=== PATIENT | female | born 1975 | race Caucasian/White ===

== ENCOUNTER 2017-08-27 22:16 | Inpatient (IN) | payer OTHER ==
[2017-08-27] MEDS ORDERED: ELECTROLYTE-148 SOLN 500 ML IV ONE (22:55)
[2017-08-27] MEDS ORDERED: CITRIC ACID/SODIUM CITRATE 30 ML UNIT-DOSE CUP PO ONE (22:55)
[2017-08-27 23:15] LABS: BASO % 0.5 % (0-2.0); EOS % 1.7 % (0-4.5); HEMATOCRIT 30.3 % (32.4-45.2); HEMOGLOBIN 10.2 GM/dL (10.7-15.3); LYMPH % 16.2 % (8-40); MCH 31.4 pg (25.7-33.7); MCHC 33.8 g/dl (32.0-36.0); MONO % 6.7 % (3.8-10.2); NEUT % 74.9 % (42.8-82.8); PLATELET COUNT 285 K/MM3 (134-434); RBC 3.25 M/mm3 (3.60-5.2); WHITE BLOOD COUNT 10.7 K/mm3 (4.0-10.0)
[2017-08-27 23:25] VITALS: BMI 40.1
[2017-08-27] MEDS ORDERED: ELECTROLYTE-148 SOLN 1,000 ML IV SCH ×2 (23:25→23:45)
[2017-08-27 23:28] LABS: INR 0.95 (0.82-1.09); PROTHROMBIN TIME (PATIENT) 10.7 SEC (9.98-11.88)
[2017-08-27 23:31] LABS: ACTIVATED PTT 28.3 SECONDS (26.9-34.4)
[2017-08-27] MEDS ORDERED: morphine SULFATE/Preservative Free 0.5 MG/ML (1cc Syringe) ONE (23:54)
[2017-08-27 23:56] LABS: ANION GAP 11 (8-16); BLOOD UREA NITROGEN 10 mg/dL (7-18); CALCIUM 8.2 mg/dL (8.5-10.1); CHLORIDE 104 mmol/L (98-107); CO2 22 mmol/L (21-32); CREATININE 0.7 mg/dL (0.55-1.02); GLUCOSE,RANDOM 95 mg/dL (74-106); POTASSIUM 3.9 mmol/L (3.5-5.1); SODIUM 137 mmol/L (136-145)
--- NOTE | 2017-08-28 00:02 | HP ---
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: No: Alzheimer's, CVA, Dementia, Migraine, Multiple Sclerosis, Peripheral Neuropathy, Parkinson's, Seizure, Syncope, TIA, Vertigo, Other Cardiovascular: No: AFIB, Aneurysm, Aortic Insufficiency, Aortic Stenosis, CAD, CHF, Deep Vein Thrombosis, HTN, Hyperlipdemia, ID, Mitral Insufficiency, Mitral Stenosis, Murmur, Pulmonary Hypertension, Other Pulmonary: No: Asthma, Bronchitis, Cancer, COPD, O2 Dependent, Pneumonia, Previously Intubated, Pulmonary Embolus, Pulmonary Fibrosis, Sleep Apnea, Other Gastrointestinal: No: Ascites, Cancer, Constipation, Crohn's Disease, Diverticulitis, Diverticulosis, Esophageal Varices, Gastritis, GERD, GI Bleed, Hemorrhoids, Hiatal Hernia, Inflamatory Bowel Disease, Irritable Bowel Disease, Pancreatitis, Peptic Ulcer Disease, Ulcerative Colitis, Other Hepatobiliary: No: Cirrhosis, Cholelithiasis, Cholecystitis, Choledocholithiasis , Hepatitis A, Hepatitis B, Hepatitis C, Other Renal/: No: Renal Failure, Renal Inusuff, BPH, Cancer, Hematuria, Hemodialysis , Neurogenic Bladder, Renal Calculi, UTI, Other Reproductive: No: Ectopic , Endometriosis, Fibroids, PID, Polycystic Ovary Syndrome, Postmenopausal, Other ...: 2 ...Para: 1 ...Term: 1 ...: 0 ...Spon : 0 ...Induced : 0 ...Multiple Gestation: 0 ...LMP: 12/08/16 ... Weeks Gestation by Dates: 37.3 ...EDC by Sono: 09/14/17 Heme/Onc: Yes: Anemia Infectious Disease: No: AIDS, C-Diff, Herpes Zoster, HIV, MRSA, STD's, Tuberculosis, VREF, Other Psych: No: Addictions, Anxiety, Bipolar, Depression, Panic, Psychosis, Schizophrenia, Other Musculoskeletal: No: Bursitis, Chronic low back pain, Hemiparesis, Hemiplegia, Osteoarthritis, Paraplegia, Other Rheumatology: No: Fibromyalgia, Gout, Lupus, Rheumatoid Arthritis, Sarcoidosis, Vasculitis, Other ENT: No: Allergic Rhinitis, Sinusitis, Other Endocrine: No: Lawrence's Disease, Alysa's Disease, Diabetes Insipidus, Diabetes Mellitus, Hyperparathyroidism, Hyperthyroidism, Hypothyroidism, Osteopenia, SIADH, Other Dermatology: No: Basal Cell, Cellulitis, Eczema, Melanoma, Psoriasis, Squamous Cell, Other Additional Medical History: Obesity - Past Surgical History Past Surgical History: Yes: Hx Myomectomy: No Hx Transabdominal Cerclage: No - Smoking History Smoking history: Never smoked Have you smoked in the past 12 months: No - Alcohol/Substance Use Hx Alcohol Use: No History of Substance Use: reports: None - Social History Usual Living Arrangement: Yes: Alone, With Child ADL: Independent 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 History of Recent Travel: No Home Medications - Allergies Allergies/Adverse Reactions: Allergies Allergy/AdvReac Type Severity Reaction Status Date / Time No Known Allergies Allergy Verified 08/27/17 22:42 - Home Medications Home Medications: Ambulatory Orders RX: Vitamins (Sjr) - 1 tab PO DAILY 08/19/15 Family Disease History - Family Disease History Family Disease History: CA: Mother (Colon ca) Review of Systems - Review of Systems Constitutional: reports: Other (labor) Eyes: reports: No Symptoms HENT: reports: No Symptoms Neck: reports: No Symptoms Cardiovascular: reports: No Symptoms Respiratory: reports: No Symptoms Gastrointestinal: reports: No Symptoms Genitourinary: reports: No Symptoms Breasts: reports: No Symptoms Reported Musculoskeletal: reports: No Symptoms Integumentary: reports: No Symptoms Neurological: reports: No Symptoms Endocrine: reports: No Symptoms Hematology/Lymphatic: reports: No Symptoms Psychiatric: reports: No Symptoms Pain Intensity: 9 Physical Exam - Maternity Vital Signs: Vital Signs Temperature 97.6 F 08/27/17 23:00 Pulse Rate 76 08/27/17 23:00 Respiratory Rate 18 08/27/17 23:00 Blood Pressure 115/65 08/27/17 23:00 O2 Sat by Pulse Oximetry (%) Constitutional: Yes: Calm, Obese Eyes: Yes: WNL, Conjunctiva Clear, EOM Intact HENT: Yes: Atraumatic, Normocephalic Neck: Yes: Supple, Trachea Midline Cardiovascular: Yes: Regular Rate and Rhythm Lungs: Clear to auscultation, Normal air movement - Abdominal Exam/OB Fundal Height: 41 Number of Fetuses: Single Presentation: Vertex Contractions: Yes Regularity: Regular Intensity: Mod/Strong Monitor Mode: External Heart Rate (range): 140 Heart Rate Location: Midline Category: I Accelerations: Uniform Decelerations: None - Vaginal Exam/OB Vaginal Bleediing: No Speculum Exam: No Dilatation (cm): 1 Effacement (%): 80 Amniotic Membrane Status: Intact Presentation: Vertex/Position Station: -4 - Physical Exam Musculoskeletal: Yes: WNL Extremities: Yes: WNL Edema: Yes Edema: LLE: Trace, RLE: Trace Integumentary: Yes: WNL Deep Tendon Reflex Grade: Normal +2 ...Motor Strength: WNL Psychiatric: Yes: WNL, Alert, Oriented - Labs Lab Results: CBC, BMP 08/27/17 22:55 Hemorrhage Risk Assessment - Risk Factors Medium Risk Factors: Yes: Prior , uterine surgery,or multiple laparotomies, Obesity (BMI >40) High Risk Factors: Yes: None Risk Score: 2 Risk Level: High Risk Imaging - Results Ultrasound: Report Reviewed Assessment/Plan 41yo P1 with at EGA 37w 3d with regular painful contractions since x2- 3 hrs. Pt with prior C/S and declined . Fetus with Category I tracing and does not require intervention. We discussed the risks and benefits of C/S at length, including but not limited to scarring, pain, bleeding, infection, injury to underlying organs and structures, need for additional surgery to repair/treat any problems or complications, complications/injuries, etc. The pt verbalized her understanding and requested to proceed with surgery.
[2017-08-28] MEDS ORDERED: ceFAZolin SODIUM 1 GM VIAL ONE (00:12)
[2017-08-28] MEDS ORDERED: PHENYLEPHRINE HCL 10 MG/1 ML SINGLE DOSE VIAL ONE (00:12)
[2017-08-28] MEDS ORDERED: OXYTOCIN 10 UNITS/ML VIAL ONE ×2 (00:24→00:33)
[2017-08-28] MEDS ORDERED: SENNOSIDES/DOCUSATE COMBO (SENNA PLUS) TABLET (UD) PO PRN (01:25)
[2017-08-28] MEDS ORDERED: BENZOCAINE 20% 57 GM BOTTLE TP PRN (01:25)
[2017-08-28] MEDS ORDERED: WITCH HAZEL 50% (TUCKS) 40 PAD/JAR PAD TP PRN (01:25)
[2017-08-28] MEDS ORDERED: IBUPROFEN 600 MG TABLET (FP) PO PRN ×2 (01:25→01:36)
[2017-08-28] MEDS ORDERED: METHYLERGONOVINE MALEATE 0.2 MG/1 ML AMP IM PRN (01:25)
[2017-08-28] MEDS ORDERED: BENZOCAINE 28 GM HEMORRHOIDAL OINTMENT TP PRN (01:25)
[2017-08-28] MEDS ORDERED: oxyCODONE HCL 5 MG TABLET PO PRN (01:25)
[2017-08-28] MEDS ORDERED: OXYTOCIN 20 UNITS in 0.9% NS 20 UNIT/1,000 ML INFUS.BAG IV SCH (01:30)
[2017-08-28] MEDS ORDERED: morphine SULFATE/Preservative Free 0.5 MG/ML (1cc Syringe) SPIN ONE (01:36)
[2017-08-28] MEDS ORDERED: ONDANSETRON 4 MG/2 ML VIAL IVPUSH PRN (01:36)
--- NOTE | 2017-08-28 01:37 | OP ---
Operative Note - Note: Operative Date: 08/28/17 Pre-Operative Diagnosis: at 37w3d with prior C/S in labor Operation: Repeat LT C/S Findings: Live baby boy in VTX presentation, no meconium, normal uterus/tubes/ovaries. 9/9 Post-Operative Diagnosis: Same as Pre-op Surgeon: Pillo Donnelly Information Technology Security Analyst: Ewa Coats Anesthesiologist/DESIGN DRAFTER: Nancy Shelby Anesthesia: Spinal Specimens Removed: Placenta Estimated Blood Loss (mls): 700 Drains & Tubes with Location: Maurice Cath Drains, Volume Out (mls): 300 Blood Volume Replaced (mls): 0 Fluid Volume Replaced (mls): 1,000 Operative Report Dictated: Yes
[2017-08-28] MEDS ORDERED: CEFAZOLIN 1 GM/D5W 1 GM/50 ML BAG IVPB SCH ×2 (02:00→08:00)
[2017-08-28] MEDS: IBUPROFEN 800 MG/8 ML IJ IVPB PRN ×2 (05:09→20:06)
[2017-08-28] MEDS: ENOXAPARIN NA (PORCINE) 40 MG/0.4 ML DISP.SYRIN SQ SCH (09:43)
[2017-08-28] MEDS: PRENATAL VITAMINS W/ FOLIC ACID TABLET (FP) PO SCH (09:44)
[2017-08-28] MEDS: CEFAZOLIN 1 GM PUSH 1 GM/10 ML DISP.SYRIN IVPUSH SCH ×2 (10:18→16:05)
--- NOTE | 2017-08-28 11:32 | PN ---
Progress Note (short form) - Note Progress Note: Pt is day#1 s/p csection. Doing well, no pain, no complaints. No MARTINEZ/back pain , no apparent anesthetic complications. Continue current treatment.
--- NOTE | 2017-08-28 13:22 | PN ---
Post Progress Note - Subjective Subjective: No complaints Post Day: 0 Type of Delivery: Repeat C/S Vital Signs: Vital Signs Temperature 97 F L 08/28/17 10:00 Pulse Rate 64 08/28/17 10:00 Respiratory Rate 18 08/28/17 13:00 Blood Pressure 81/48 08/28/17 10:00 O2 Sat by Pulse Oximetry (%) 100 08/28/17 02:20 Breast Exam: Yes: Soft Uterus: Yes: Fundus @ umbilicus Incision: Yes: Dressing dry and intact Abdomen/GI: Yes: Abdomen soft Lochia: Yes: Rubra Lochia, amount: Small Extremities: Yes: Calves non-tender Perineum: Yes: Intact Activity: Ambulating - Labs Labs: CBC WBC 10.7 K/mm3 (4.0-10.0) H 08/27/17 22:55 RBC 3.25 M/mm3 (3.60-5.2) L 08/27/17 22:55 Hgb 10.2 GM/dL (10.7-15.3) L 08/27/17 22:55 Hct 30.3 % (32.4-45.2) L 08/27/17 22:55 MCV 93.0 fl (80-96) 08/27/17 22:55 MCH 31.4 pg (25.7-33.7) 08/27/17 22:55 MCHC 33.8 g/dl (32.0-36.0) 08/27/17 22:55 RDW 13.0 % (11.6-15.6) 08/27/17 22:55 Plt Count 285 K/MM3 (134-434) 08/27/17 22:55 MPV 8.0 fl (7.5-11.1) 08/27/17 22:55 Neutrophils % 74.9 % (42.8-82.8) 08/27/17 22:55 Lymphocytes % 16.2 % (8-40) 08/27/17 22:55 Monocytes % 6.7 % (3.8-10.2) 08/27/17 22:55 Eosinophils % 1.7 % (0-4.5) 08/27/17 22:55 Basophils % 0.5 % (0-2.0) 08/27/17 22:55 Assessment/Plan 41yo P2 s/p repeat LT C/s, doing well, stable, afebrile. The pt is asymptomatic for s/sxs of anemia. care instructions reviewed. Continue routine postop care. Ambulation encouraged.
[2017-08-29] MEDS: CEFAZOLIN 1 GM PUSH 1 GM/10 ML DISP.SYRIN IVPUSH SCH (00:51)
[2017-08-29] MEDS ORDERED: BISACODYL 10 MG SUPP.RECT RC PRN (01:25)
--- NOTE | 2017-08-29 06:55 | OP ---
DATE OF OPERATION: 08/28/2017 PREOPERATIVE DIAGNOSES: at 37 weeks and 3 days, spontaneous labor, previous section. POSTOPERATIVE DIAGNOSES: at 37 weeks and 3 days, spontaneous labor, previous section, delivered. PROCEDURE: Repeat low transverse section via Pfannenstiel skin incision. SURGEON: Pillo Donnelly MD ASSISTANT TECHNICIAN: Ewa Coats DO ANESTHESIA: Spinal. ANESTHESIOLOGIST: Nancy Shelby MD ESTIMATED BLOOD LOSS: 700 mL. URINE OUTPUT: 300 mL of clear urine at the end of the procedure. IV FLUIDS: 1000 mL. PATHOLOGY: Placenta. COMPLICATIONS: None. FINDINGS: Live baby boy in vertex presentation. No meconium in amniotic fluid. Normal uterus, fallopian tubes and ovaries. PROCEDURE: The patient was met preoperatively. Risks, benefits and alternatives of surgery were discussed in detail. All questions were answered. The patient was brought to the OR with IV running. She was placed on the surgical table in the sitting position. The spinal anesthesia was achieved without difficulty. The patient was then placed in a supine position with a leftward tilt. A Maurice catheter was inserted and left to drain to gravity. The patient was prepped and draped in the usual sterile fashion. A timeout procedure was conducted as per standard protocol. The surgeons then proceeded with the section. A Pfannenstiel skin incision was made with a knife along the prior scar. The incision was taken down to the level of fascia. The fascia was incised in the midline. The incision was extended bilaterally using Maya scissors. The fascia was dissected away from the rectus muscles superiorly and inferiorly. The peritoneum was identified and entered sharply. The peritoneal incision was extended superiorly and inferiorly. The bladder was dissected away from the lower uterine segment and retracted downwards. The uterus was incised transversely in the lower uterine segment. The uterine incision was extended bilaterally using bandage scissors. The amniotic bag was ruptured and clear amniotic fluid was noted. The baby was delivered from vertex presentation without complications. The umbilical cord was clamped and cut. The baby was handed to the waiting personnel coordinator. The placenta was delivered manually and without complications. The uterus was cleared of all clots and debris using laparotomy laps. The uterine incision was repaired using 0 Biosyn suture. The uterine incision was then imbricated using a 0 Biosyn suture with good hemostasis. The bladder peritoneum was reapproximated using 0 Biosyn suture. The operative site was irrigated using copious amounts of normal saline. Once the saline was aspirated, good hemostasis was confirmed. The abdominal peritoneum was closed using 2-0 chromic suture. The rectus muscles were approximated in the midline using several interrupted 2-0 chromic sutures. The fascia was closed using a 0 Vicryl suture with good hemostasis and approximation. The subcutaneous adipose tissues were closed using several interrupted 0 Vicryl sutures to eliminate space. The skin was closed using a 3-0 Vicryl suture with a subcutaneous stitch. The patient tolerated the procedure well. Sponge, lap and instrument counts were correct. The patient was transferred to the recovery room in stable condition. Loretta [id number]
[2017-08-29 08:40] LABS: BASO % 0.6 % (0-2.0); EOS % 1.6 % (0-4.5); HEMATOCRIT 31.6 % (32.4-45.2); HEMOGLOBIN 10.5 GM/dL (10.7-15.3); LYMPH % 13.6 % (8-40); MCHC 33.2 g/dl (32.0-36.0); MEAN CELL VOLUME 93.3 fl (80-96); MEAN PLT VOLUME 7.9 fl (7.5-11.1); MONO % 5.4 % (3.8-10.2); NEUT % 78.8 % (42.8-82.8); PLATELET COUNT 256 K/MM3 (134-434); RBC 3.38 M/mm3 (3.60-5.2); RDW 13.1 % (11.6-15.6); WHITE BLOOD COUNT 9.9 K/mm3 (4.0-10.0)
[2017-08-29] MEDS ORDERED: DIPHTH,PERTUSS(ACELL),TET 0.5 ML DISP.SYRIN IM ONE (10:00)
[2017-08-29] MEDS ORDERED: FLU VACCINE QUAD 60 MCG/0.5 ML (MDV 17-18) IM ONE (10:00)
[2017-08-29] MEDS: ENOXAPARIN NA (PORCINE) 40 MG/0.4 ML DISP.SYRIN SQ SCH (10:10)
[2017-08-29] MEDS: PRENATAL VITAMINS W/ FOLIC ACID TABLET (FP) PO SCH (10:11)
[2017-08-29] MEDS ORDERED: oxyCODONE HCL 5 MG TABLET PO PRN (10:27)
[2017-08-29] MEDS: SIMETHICONE 80 MG TAB.CHEW (FP) PO PRN ×2 (10:56→20:52)
[2017-08-29] MEDS: oxyCODONE HCL 5 MG TABLET PO PRN ×2 (10:56→20:52)
[2017-08-29] MEDS: ACETAMINOPHEN 325 MG TABLET (FP) PO PRN ×2 (10:58→20:52)
--- NOTE | 2017-08-29 12:32 | PN ---
Post Progress Note - Subjective Subjective: No complaints, ambulating, had flatus, pain controlled Post Day: 1 Type of Delivery: Repeat C/S Vital Signs: Vital Signs Temperature 97.5 F L 08/29/17 01:00 Pulse Rate 67 08/29/17 01:00 Respiratory Rate 20 08/29/17 01:00 Blood Pressure 101/57 08/29/17 01:00 O2 Sat by Pulse Oximetry (%) 100 08/28/17 02:20 Breast Exam: Yes: Soft Uterus: Yes: Fundus Firm, Fundus below umbilicus, Non-tender Incision: Yes: Sutures intact Abdomen/GI: Yes: Abdomen soft Lochia: Yes: Rubra Lochia, amount: Small Extremities: Yes: Calves non-tender Perineum: Yes: Intact Activity: Ambulating - Labs Labs: CBC WBC 9.9 K/mm3 (4.0-10.0) 08/29/17 08:10 RBC 3.38 M/mm3 (3.60-5.2) L 08/29/17 08:10 Hgb 10.5 GM/dL (10.7-15.3) L 08/29/17 08:10 Hct 31.6 % (32.4-45.2) L 08/29/17 08:10 MCV 93.3 fl (80-96) 08/29/17 08:10 MCH 31.0 pg (25.7-33.7) 08/29/17 08:10 MCHC 33.2 g/dl (32.0-36.0) 08/29/17 08:10 RDW 13.1 % (11.6-15.6) 08/29/17 08:10 Plt Count 256 K/MM3 (134-434) 08/29/17 08:10 MPV 7.9 fl (7.5-11.1) 08/29/17 08:10 Neutrophils % 78.8 % (42.8-82.8) 08/29/17 08:10 Lymphocytes % 13.6 % (8-40) 08/29/17 08:10 Monocytes % 5.4 % (3.8-10.2) 08/29/17 08:10 Eosinophils % 1.6 % (0-4.5) 08/29/17 08:10 Basophils % 0.6 % (0-2.0) 08/29/17 08:10 Assessment/Plan 41yo POD #1 for this P2 s/p repeat LT C/s, doing well, stable, afebrile. The pt is asymptomatic for s/sxs of anemia. Hct stable. care instructions reviewed. Continue routine postop care. Ambulation encouraged.
[2017-08-30] MEDS: oxyCODONE HCL 5 MG TABLET PO PRN ×2 (07:45→17:25)
[2017-08-30] MEDS: SIMETHICONE 80 MG TAB.CHEW (FP) PO PRN ×2 (07:45→17:25)
[2017-08-30] MEDS: ACETAMINOPHEN 325 MG TABLET (FP) PO PRN ×2 (07:46→17:26)
[2017-08-30] MEDS: PRENATAL VITAMINS W/ FOLIC ACID TABLET (FP) PO SCH (09:38)
[2017-08-30] MEDS: ENOXAPARIN NA (PORCINE) 40 MG/0.4 ML DISP.SYRIN SQ SCH (09:38)
--- NOTE | 2017-08-30 12:47 | DS ---
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 Vital Signs: Vital Signs Temperature 97.8 F 08/30/17 08:31 Pulse Rate 74 08/30/17 08:31 Respiratory Rate 20 08/30/17 08:31 Blood Pressure 110/65 08/30/17 08:31 O2 Sat by Pulse Oximetry (%) 100 08/28/17 02:20 Constitutional: Yes: Well Nourished, No Distress, Calm Eyes: Yes: WNL, Conjunctiva Clear HENT: Yes: WNL, Atraumatic, Normocephalic Neck: Yes: WNL, Supple, Trachea Midline Cardiovascular: Yes: WNL, Regular Rate and Rhythm Respiratory: Yes: WNL, Regular, CTA Bilaterally Gastrointestinal: Yes: Normal Bowel Sounds, Soft, Abdomen, Obese ...Rectal Exam: Yes: Deferred Renal/: Yes: WNL External Genitalia: Yes: Normal Internal Exam Deferred: Yes ....Post : Yes: Uterus firm, Uterus non-tender, Slight lochia rubra Breast(s): Yes: WNL Musculoskeletal: Yes: WNL Extremities: Yes: WNL Edema: LLE: Trace, RLE: Trace Integumentary: Yes: WNL Wound/Incision: Yes: Clean/Dry, Well Approximated, Sutures Intact, Steri Strips Neurological: Yes: WNL, Alert, Oriented ...Motor Strength: WNL Psychiatric: Yes: WNL, Alert, Oriented Labs: CBC, BMP 08/29/17 08:10 08/27/17 22:55 Delivery - Delivery Section: Repeat, Low Flap Transverse Type of Anesthesia: Spinal Episiotomy/Laceration: None EBL (cc): 700 Delivery, Single - Stages of Labor Date 1st Stage Initiatied: 08/27/17 Time 1st Stage Initiated: 20:00 Date of Delivery: 08/28/17 Time of Delivery: 00:32 Time Placenta Delivered: 00:33 Placenta: Yes: Manual Removal, Normal Configuration - Condition of Receptionist Clerk/Stars Analytical Lead Present: Yes Name: Laurel Everett Gender: Male Weight: 3.515 kg Position: Left, OT Total Hours ROM (Hrs/Mins): 2min - 1 Minute Total Score: 9 5 Minutes Total Score: 9 - [place] Feeding Plan Initial Plan: Elected not to breastfeed exclusively throughout hospitalization Discharge Summary Reason For Visit: ADMIT Spontaneous labor, prior C/S Procedures: Principal: Repeat LT C/S Hospital Course: Normal recovery Condition: Good - Instructions Diet, Activity, Other Instructions: Physical activity Resume your normal everyday activity as tolerated no heavy lifting or exercise until seen by your surgeon. You may walk unlimited na of and climb stairs. You may resume driving the car when you feel safe and comfortable behind the wheel. No sexual activity as instructed. Wound care If you have a bandage, leave it on, and keep dry for 48-72 hours. After that time discard the outer bandage. If they are tapes on the skin under the out of bandage leave them in place. They will peel off in the next 7 to 10 days. Do Not Peel them off. You may shower the day after surgery. If there are tapes present on the skin, you may shower over them. Diet There are no dietary restrictions. Eat healthy, high-fiber foods. Drink 6 to 8 glasses of liquid each day. This will assist in keeping your bowels are regular. Pain management You may take Tylenol or acetaminophen or Ibuprofen (for example, Motrin, Advil etc.) from my pain prescription medication is ordered should be taken as prescribed for moderate to severe pain. Call MD for any of the following: Severe pain not relieved by medication Fever of 101 or higher Excessive bleeding or drainage on dressing Inability to urinate Referrals: Pillo Donnelly MD [Staff Physician] - Disposition: HOME - Home Medications Comprehensive Discharge Medication List: Ambulatory Orders Vitamins (Sjr) - 1 tab PO DAILY 08/19/15
[2017-08-31] MEDS: SIMETHICONE 80 MG TAB.CHEW (FP) PO PRN (05:59)
[2017-08-31] MEDS: ACETAMINOPHEN 325 MG TABLET (FP) PO PRN (06:00)
[2017-08-31] MEDS: oxyCODONE HCL 5 MG TABLET PO PRN (06:03)
[2017-08-31 08:01] LABS: BASO % 0.4 % (0-2.0); EOS % 3.6 % (0-4.5); HEMATOCRIT 29.7 % (32.4-45.2); HEMOGLOBIN 9.9 GM/dL (10.7-15.3); LYMPH % 19.2 % (8-40); MCH 31.2 pg (25.7-33.7); MCHC 33.4 g/dl (32.0-36.0); MEAN CELL VOLUME 93.4 fl (80-96); MEAN PLT VOLUME 7.7 fl (7.5-11.1); MONO % 5.9 % (3.8-10.2); NEUT % 70.9 % (42.8-82.8); PLATELET COUNT 270 K/MM3 (134-434); RBC 3.18 M/mm3 (3.60-5.2); RDW 12.7 % (11.6-15.6); WHITE BLOOD COUNT 8.2 K/mm3 (4.0-10.0)
[2017-08-31] MEDS: ENOXAPARIN NA (PORCINE) 40 MG/0.4 ML DISP.SYRIN SQ SCH (09:42)
[2017-08-31] MEDS: PRENATAL VITAMINS W/ FOLIC ACID TABLET (FP) PO SCH (09:43)
[2017-08-31 10:27] VITALS: BP 112/63; PULSE 69; TEMP 99.4
--- NOTE | 2017-09-02 17:44 | PATH ---
Surgical Pathology Report Patient Name: HUSEYIN BUSTILLO Med. Rec. #: [id number] /Age/Gender: 1975 (Age: 41) / F Account: [id number] Location: [facility] OBS/SALES PROMOTION OFFICER Taken: 08/28/2017 Received: 08/28/2017 Reported: 09/02/2017 Physicians: Pillo Donnelly M.D. Specimen(s) Received PLACENTA Clinical History , 37.3 weeks previous in labor Final Diagnosis PLACENTA, SECTION: 470 g THIRD TRIMESTER PLACENTA WITH TRIVASCULAR UMBILICAL CORD AND UNREMARKABLE PLACENTAL MEMBRANES. Electronically Signed Nilda Calzada M.D. Gross Description The specimen is received fresh labeled placenta and is a 470 gram, 17.5 x 17.0 x 2.1 cm. placenta with attached membranes and umbilical cord. The attached membranes are abbasi, translucent with focal opacities and insert marginally. The umbilical cord measures 39 cm. in length and averages 1.1 cm. in diameter. The cord inserts eccentrically, 5 cm. to the nearest margin. No true knots or strictures are identified. Cut surface of the umbilical cord reveals 3 vessels. The surface is michaels-blue with minimal fibrin deposition and appropriate caliber vessels. The maternal surface is red-brown with focal defects. Sectioning reveals red-brown, spongy parenchyma. No lesions are identified. Enterprise Account Executive sections are submitted in three cassettes as follows: 1- membrane rolls and umbilical cord; 2-3- full thickness sections of placenta. 09/01/201709/01/2017
== END 2017-08-31 16:30 | disposition home or self-care (01) | DRG 765 ==
LOC: JDEL 22:16 → JLDR 22:50 → J3W 08-28 03:30
PROVIDERS: ADMIT Obstetrics & Gynecology; ATTEND Obstetrics & Gynecology
PROC: 10D00Z1 Extraction of Products of Conception, Low, Open Approach (ICD-10-PCS; principal; 2017-08-28)
DX: O34.219 Maternal care for unspecified type scar from previous cesarean delivery (principal); Z68.41 Body mass index [BMI] 40.0-44.9, adult; O99.214 Obesity complicating childbirth; E66.8 Other obesity; Z3A.37 37 weeks gestation of pregnancy; Z37.0 Single live birth
CPT/HCPCS: 36415; 80048; 85025; 85610; 85730; 86593; 86850; 86900; 86901; 88307-TC; 90688; 90715; G0008

== ENCOUNTER 2017-11-17 05:15 | Day surgery (SDC) | payer OTHER ==
[2017-11-14 11:06] VITALS: BMI 38.3
--- NOTE | 2017-11-17 09:10 | HP ---
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: No: Alzheimer's, CVA, Dementia, Migraine, Multiple Sclerosis, Peripheral Neuropathy, Parkinson's, Seizure, Syncope, TIA, Vertigo, Other Cardiovascular: No: AFIB, Aneurysm, Aortic Insufficiency, Aortic Stenosis, CAD, CHF, Deep Vein Thrombosis, HTN, Hyperlipdemia, IA, Mitral Insufficiency, Mitral Stenosis, Murmur, Pulmonary Hypertension, Other Pulmonary: No: Asthma, Bronchitis, Cancer, COPD, O2 Dependent, Pneumonia, Previously Intubated, Pulmonary Embolus, Pulmonary Fibrosis, Sleep Apnea, Other Gastrointestinal: No: Ascites, Cancer, Constipation, Crohn's Disease, Diverticulitis, Diverticulosis, Esophageal Varices, Gastritis, GERD, GI Bleed, Hemorrhoids, Hiatal Hernia, Inflamatory Bowel Disease, Irritable Bowel Disease, Pancreatitis, Peptic Ulcer Disease, Ulcerative Colitis, Other Hepatobiliary: No: Cirrhosis, Cholelithiasis, Cholecystitis, Choledocholithiasis , Hepatitis A, Hepatitis B, Hepatitis C, Other Renal/: No: Renal Failure, Renal Inusuff, BPH, Cancer, Hematuria, Hemodialysis , Neurogenic Bladder, Renal Calculi, UTI, Other Reproductive: No: Ectopic , Endometriosis, Fibroids, PID, Polycystic Ovary Syndrome, Postmenopausal, Other ...Para: 2 Heme/Onc: Yes: Anemia Infectious Disease: No: AIDS, C-Diff, Herpes Zoster, HIV, MRSA, STD's, Tuberculosis, VREF, Other Psych: No: Addictions, Anxiety, Bipolar, Depression, Panic, Psychosis, Schizophrenia, Other Musculoskeletal: No: Bursitis, Chronic low back pain, Hemiparesis, Hemiplegia, Osteoarthritis, Paraplegia, Other Rheumatology: No: Fibromyalgia, Gout, Lupus, Rheumatoid Arthritis, Sarcoidosis, Vasculitis, Other ENT: No: Allergic Rhinitis, Sinusitis, Other Endocrine: No: Lawrence's Disease, Alysa's Disease, Diabetes Insipidus, Diabetes Mellitus, Hyperparathyroidism, Hyperthyroidism, Hypothyroidism, Osteopenia, SIADH, Other Dermatology: No: Basal Cell, Cellulitis, Eczema, Melanoma, Psoriasis, Squamous Cell, Other Additional Medical History: Obesity - Past Surgical History Past Surgical History: Yes: (x 2) Hx Myomectomy: No Hx Transabdominal Cerclage: No - Smoking History Smoking history: Never smoked Have you smoked in the past 12 months: No - Alcohol/Substance Use Hx Alcohol Use: No History of Substance Use: reports: None - Social History Usual Living Arrangement: Yes: With Child ADL: Independent 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 History of Recent Travel: No Home Medications - Allergies Allergies/Adverse Reactions: Allergies Allergy/AdvReac Type Severity Reaction Status Date / Time No Known Allergies Allergy Verified 08/27/17 22:42 - Home Medications Home Medications: Ambulatory Orders NK [No Known Home Medication] 11/14/17 Family Disease History - Family Disease History Family Disease History: CA: Mother (Colon ca) Review of Systems - Review of Systems Constitutional: reports: No Symptoms Eyes: reports: No Symptoms HENT: reports: No Symptoms Neck: reports: No Symptoms Cardiovascular: reports: No Symptoms Respiratory: reports: No Symptoms Gastrointestinal: reports: No Symptoms Genitourinary: reports: No Symptoms Breasts: reports: No Symptoms Reported Musculoskeletal: reports: No Symptoms Integumentary: reports: No Symptoms Neurological: reports: No Symptoms Endocrine: reports: No Symptoms Hematology/Lymphatic: reports: No Symptoms Psychiatric: reports: No Symptoms Pain Intensity: 0 Physical Exam-PRODUCT DEVELOPMENT ASSISTANT Constitutional: Yes: Well Nourished, No Distress, Calm Eyes: Yes: WNL, Conjunctiva Clear HENT: Yes: WNL, Atraumatic, Normocephalic Neck: Yes: WNL, Supple, Trachea Midline Cardiovascular: Yes: WNL, Regular Rate and Rhythm Respiratory: Yes: WNL, Regular, CTA Bilaterally Gastrointestinal: Yes: Normal Bowel Sounds, Soft, Abdomen, Obese ...Rectal Exam: Yes: Deferred Renal/: Yes: WNL Pelvis: Yes: WNL External Genitalia: Yes: Normal Internal Exam Deferred: No Vaginal Exam: Yes: Normal Cervix: Yes: Normal Uterus: Yes: Normal Adnexa: Not Palpable: Left, Right Musculoskeletal: Yes: WNL Extremities: Yes: WNL Edema: No Integumentary: Yes: WNL Neurological: Yes: WNL, Alert, Oriented ...Motor Strength: WNL Psychiatric: Yes: WNL, Alert, Oriented Assessment/Plan 42yo P2 admitted for surgical sterilization. The pt prefers laparoscopic bilateral tubal ligation. We had discussed the risks, benefits, alternatives of surgery at length including but not limited to infection, bleeding, scarring, perforation, amenorrhea, infertility, hysterectomy, injury to surrounding/ underlying organs or structure, need for additional surgery to repair/treat any complications, etc. The patient verbalized understanding and requested to proceed with surgery. I emphasized that all surgeries have risks and no guarantees can be provided.
[2017-11-17] MEDS ORDERED: MIDAZOLAM HCL 2 MG/2 ML SINGLE DOSE VIAL ONE (10:17)
[2017-11-17] MEDS ORDERED: PROPOFOL 20 ML ONE (10:21)
[2017-11-17] MEDS ORDERED: ROCURONIUM BROMIDE 50 MG/5 ML VIAL ONE (10:31)
[2017-11-17] MEDS ORDERED: NEOSTIGMINE METHYLSULFATE 0.5 MG/ML - 10 ML MDV ONE (10:57)
[2017-11-17] MEDS ORDERED: BUPIVACAINE HCL/PF 0.25% (2.5MG/ML) 10 ML VIAL IJ ONE (10:59)
--- NOTE | 2017-11-17 11:09 | OP ---
Operative Note - Note: Operative Date: 11/17/17 Pre-Operative Diagnosis: Sterilization Operation: Laparoscopic bilateral tubal ligation Findings: Normal uterus and fallopian tubes Post-Operative Diagnosis: Same as Pre-op Surgeon: Pillo Donnelly Cargo Worker: Adriana Jones Anesthesiologist/SHIPBOARD INTELLIGENCE ANALYST: Libby Francisco MD Anesthesia: General Specimens Removed: None Estimated Blood Loss (mls): 2 Drains & Tubes with Location: Maurice cath Drains, Volume Out (mls): 300 Blood Volume Replaced (mls): 0 Fluid Volume Replaced (mls): 1,000 Operative Report Dictated: Yes
[2017-11-17] MEDS ORDERED: oxyCODONE HCL 5 MG TABLET PO PRN (11:31)
[2017-11-17] MEDS ORDERED: PROMETHAZINE HCL 25 MG/1 ML VIAL IVPUSH PRN (11:31)
[2017-11-17] MEDS ORDERED: ONDANSETRON 4 MG/2 ML VIAL IVPUSH PRN (11:31)
[2017-11-17] MEDS ORDERED: LACTATED RINGERS SOLUTION 1,000 ML IV SCH (11:45)
[2017-11-17 12:12] VITALS: TEMP 98
[2017-11-17 14:52] VITALS: BP 113/67; PULSE 61
--- NOTE | 2017-11-18 08:05 | OP ---
DATE OF OPERATION: 11/17/2017 PREOPERATIVE DIAGNOSIS: Sterilization. POSTOPERATIVE DIAGNOSIS: Sterilization. PROCEDURE: Laparoscopic bilateral tubal ligation via fulguration. SURGEON: Pillo Donnelly MD CALENDER TENDER: Adriana Jones MD ANESTHESIOLOGIST: Libby Francisco MD ANESTHESIA: General endotracheal. COMPLICATIONS: None. ESTIMATED BLOOD LOSS: Less than 2 mL. INTRAVENOUS FLUIDS: 1000 mL. URINE OUTPUT: 300 mL of clear urine at the end of the procedure. FINDINGS: Examination under anesthesia revealed a small anteverted uterus with no pelvic or adnexal masses. Laparoscopy revealed a normal uterus and ovaries with normal fallopian tubes. Visualized portions of bowel, liver, and gallbladder were within normal limits. DESCRIPTION OF PROCEDURE: The patient was met preoperatively. Risks, benefits, and alternatives of surgery were discussed in details. All questions were answered. The patient was brought to the OR with the IV running. She was placed on a surgical table in the supine position. The general endotracheal anesthesia was achieved without difficulty. The patient was then placed in a dorsal lithotomy position using adjustable Sachin stirrups. The patient was examined under anesthesia with the findings as described above. She was then prepped and draped in the usual sterile fashion. A HUMI uterine manipulator was introduced inside the uterus without complications. A Maurice catheter was inserted into the bladder and left to drain to gravity. The surgeons then proceeded with the laparoscopy. A 5-mm incision was made inside the umbilicus. A Veress needle was placed through the umbilical incision. Pneumoperitoneum was then produced using CO2 gas with intraabdominal pressure limited to 15 mmHg. The Veress needle was then removed, and a 5-mm trocar was placed through the umbilical incision. A second 5-mm trocar was placed approximately 3 cm above the pubic bone in the midline, and a 5-mm trocar was introduced under direct visualization. Bipolar cautery was then used to cauterize the mid-portion of the right fallopian tube. The tube was cauterized for approximately 3-4 cm length. The left fallopian tube was then also identified, and the mid-portion of the left fallopian tube was cauterized for the length of approximately 3-4 cm. Good hemostasis was noted. Once this was completed, all of the instruments were removed from the patient. Pneumoperitoneum was reduced. Sponge, lap, and instrument counts were correct. The incisions were closed using a 4-0 Biosyn suture for the skin. The patient was then transferred to recovery room in stable condition and awake. Loretta [id number]
== END 2017-11-17 14:57 | disposition home or self-care (01) ==
LOC: JASU-SURG 05:15
PROVIDERS: ATTEND Obstetrics & Gynecology
PROC: 0U574ZZ Destruction of Bilateral Fallopian Tubes, Percutaneous Endoscopic Approach (ICD-10-PCS; principal; 2017-11-17 10:00)
DX: Z30.2 Encounter for sterilization (principal)
CPT/HCPCS: 84703; 94760

== ENCOUNTER 2024-04-13 19:23 | Emergency (ER) | payer OTHER ==
[2024-04-13 19:30] VITALS: BP 136/83; PULSE 102; RESP 18; TEMP 98.6; BMI 37.5
[2024-04-13] MEDS ORDERED: AMOX TR/POT CLAV 875MG/125MG TABLETS (FP) ONE (19:36)
[2024-04-13] MEDS: AMOX TR/POT CLAV 875MG/125MG TABLETS (FP) PO ONE (19:39)
== END 2024-04-13 20:01 | disposition home or self-care (01) ==
LOC: FER 19:23
DX: H60.501 Unspecified acute noninfective otitis externa, right ear (principal); H92.01 Otalgia, right ear; R50.9 Fever, unspecified
CPT/HCPCS: 99283-25